=== PATIENT | female | born 1970 | race Hispanic/Latino ===

== ENCOUNTER 2019-01-06 23:40 | Emergency (ER) | payer OTHER ==
[2019-01-07] MEDS ORDERED: LORazepam 1 MG TAB PO ONE (00:41)
--- NOTE | 2019-01-07 00:44 | Emergency Department Report ---
ED Anxiety HPI - General Chief Complaint: Anxiety Stated Complaint: ANXIETY Time Seen by Provider: 01/07/19 00:32 Source: patient Mode of arrival: Ambulatory - History of Present Illness Initial Comments: Patient is a 48-year-old female presents emergency room with complaints of a "panic attack" that began 4 hours ago. She states that she felt overwhelmed, anxious, was hyperventilating and got tearful. She states that she tried to take a walk. She states that she also took some Benadryl but she believes that made her anxiety worse. She states that she takes Wellbutrin daily for anxiety. She states that she takes Xanax as needed for breakthrough anxiety as prescribed by her PCP. She states that she is visiting from [place] and did not have her Xanax with her. She denies any SI, HI, or hallucinations. She does not report any chest pain, shortness of breath, nausea, vomiting, leg swelling, fever, chills, any other symptoms. She denies any other past medical history. She states that she has an allergy to Keflex. - Related Data Allergies/Adverse Reactions: Allergies Allergy/AdvReac Type Severity Reaction Status Date / Time No Known Allergies Allergy Unverified 01/07/19 01:25 ED Review of Systems ROS: Stated complaint: ANXIETY Other details as noted in HPI Comment: All other systems reviewed and negative ED Past Medical Hx - Past Medical History Previous Medical History?: Yes Hx Psychiatric Treatment: Yes (anxiety) - Surgical History Past Surgical History?: Yes Additional Surgical History: tubaligation ED Physical Exam - General Limitations: No Limitations General appearance: alert, other (tearful) - Head Head exam: Present: atraumatic, normocephalic - Eye Eye exam: Present: normal appearance, PERRL, EOMI - ENT ENT exam: Present: mucous membranes moist - Respiratory Respiratory exam: Present: normal lung sounds bilaterally. Absent: respiratory distress, wheezes, rales, rhonchi, stridor, chest wall tenderness, accessory muscle use, decreased breath sounds, prolonged expiratory - Cardiovascular Cardiovascular Exam: Present: regular rate, normal rhythm, normal heart sounds. Absent: systolic murmur, diastolic murmur, rubs, gallop - Neurological Exam Neurological exam: Present: alert, oriented X3 - Psychiatric Psychiatric exam: Present: normal affect, anxious - Skin Skin exam: Present: warm, dry, intact ED Course Vital Signs 11/28/19 11/29/19 23:48 01:32 Temperature 97.5 F L 97.9 F Pulse Rate 87 82 Respiratory 18 16 Rate Blood Pressure 147/88 Blood Pressure 141/62 [Left] O2 Sat by Pulse 95 100 Oximetry ED Medical Decision Making - Medical Decision Making Patient is a 48-year-old female presents emergency room with complaints of a "panic attack" that began 4 hours ago. She states that she felt overwhelmed, anxious, was hyperventilating and got tearful. She states that she tried to take a walk. She states that she also took some Benadryl but she believes that made her anxiety worse. She states that she takes Wellbutrin daily for anxiety. She states that she takes Xanax as needed for breakthrough anxiety as prescribed by her PCP. She states that she is visiting from [place] and did not have her Xanax with her. She denies any SI, HI, or hallucinations. She does not report any chest pain, shortness of breath, nausea, vomiting, leg swelling, fever, chills, any other symptoms. She denies any other past medical history. She states that she has an allergy to Keflex. Vitals are stable. Heart sounds are normal, lung sounds are clear bilaterally, no wheezing, rales, rhonchi, stridor. Patient appears slightly anxious. Patient treated while in the emergency department for her anxiety as she did not drive to the emergency department today. Advised patient that we could not give her a refill of her Xanax today. Discussed with patient to continue to take her Wellbutrin and use coping mechanisms. Discussed with patient and she will need to see her primary care doctor or a psychiatrist for further pharmacological treatment of her anxiety. advised pt to Please take your medications as your prescribed by your primary care doctor. Please follow-up with a primary care doctor or psychiatrist in the next 2-3 days. Return to the emergency room or call 911 immediately if begin feeling thoughts of wanting to hurt herself or others. Critical care attestation.: If time is entered above; I have spent that time in minutes in the direct care of this critically ill patient, excluding procedure time. ED Disposition Clinical Impression: Anxiety, Panic attack Disposition: DC-01 TO HOME OR SELFCARE Is pt being admited?: No Does the pt Need Aspirin: No Condition: Stable Instructions: Anxiety (ED) Additional Instructions: Please take your medications as your prescribed by your primary care doctor. Please follow-up with a primary care doctor or psychiatrist in the next 2-3 days. Return to the emergency room or call 911 immediately if begin feeling thoughts of wanting to hurt herself or others. Referrals: your, primary care doctor [Other] - 3-5 Days Time of Disposition: 01:23 Print Language: SLOVENIAN
[2019-01-07 01:39] VITALS: BP 141/62
== END 2019-01-07 01:34 | disposition home or self-care (01) ==
LOC: ED 23:40
DX: F43.0 Acute stress reaction (principal); F41.9 Anxiety disorder, unspecified; Z98.51 Tubal ligation status
CPT/HCPCS: 99282